=== PATIENT | male | born 1980 | race Caucasian/White ===

== ENCOUNTER 2019-04-21 13:43 | Emergency (ER) | payer OTHER ==
[~2019-04-21] VITALS: Ht 177.8 cm; Wt 104.3 kg
[2019-04-21 14:10] LABS: ABSOLUTE NEUTROPHILS 8.8 thou/uL (1.4-8.2); BASOPHILS 0.5 % (0.0-2.0); EOSINOPHILS 1.1 % (0.0-3.0); HEMATOCRIT 44.4 % (42.0-52.0); LYMPHOCYTES 30.2 % (24.0-44.0); MCH 29.8 pg (26.0-34.0); MCHC 33.7 g/dL (28.0-37.0); MCV 88.2 fL (80.0-100.0); MONOCYTES 7.4 % (1.0-8.0); PLATELET COUNT 365 thou/uL (150-400); POLYS 60.8 % (36.0-66.0); RBC 5.03 mil/uL (4.50-6.00); RDW 13.2 % (10.5-14.5); WBC 14.5 thou/uL (4.0-11.0)
[2019-04-21 14:32] LABS: ANION GAP 10 mmol/L (7-16); BUN 16 mg/dL (7-18); CALCIUM 9.4 mg/dL (8.5-10.1); CHLORIDE 101 mmol/L (98-107); CO2 25 mmol/L (21-32); CREATININE 0.9 mg/dL (0.7-1.3); GLUCOSE 112 mg/dL (74-106); POTASSIUM 3.9 mmol/L (3.5-5.1); SODIUM 136 mmol/L (136-145)
[2019-04-21 14:38] LABS: ALBUMIN 4.3 g/dL (3.4-5.0); SGOT 25 U/L (15-37); SGPT 51 U/L (30-65); TOTAL BILIRUBIN 0.5 mg/dL (<0.1-1.0); TOTAL PROTEIN 7.7 g/dL (6.4-8.2)
[2019-04-21 14:49] LABS: SALICYLATE 4.3 mg/dL (2.8-20.0)
[2019-04-21 15:01] LABS: APTT 23.3 Seconds (24.5-32.8); INR 1.1; PROTIME 11.5 Seconds (9.3-11.4)
[2019-04-21] MEDS ORDERED: WELLBUTRIN 100100 MG PO (15:49)
[2019-04-21] MEDS ORDERED: REMICADE 1100 MG/VIA IV (15:51)
[2019-04-21] MEDS ORDERED: NORCO 5-325 TA1 EAC1 PO (16:37)
[2019-04-21] MEDS ORDERED: NAPROSYN500 MG PO (16:37)
[2019-04-21 17:06] VITALS: BP 131/80
[2019-04-21 17:24] LABS: URINE BILIRUBIN NEGATIVE (Negative); URINE BLOOD NEGATIVE (Negative); URINE CLARITY CLEAR; URINE COLOR YELLOW; URINE GLUCOSE-RANDOM* NEGATIVE (Negative); URINE KETONES NEGATIVE (Negative); URINE LEUKOCYTES-REFLEX NEGATIVE (Negative); URINE NITRITE-REFLEX NEGATIVE (Negative); URINE PROTEIN (DIPSTICK) NEGATIVE (Negative); URINE SPECIFIC GRAVITY >= 1.030 (1.005-1.035); URINE UROBILINOGEN 0.2 E.U./dl (0.2-1.0)
[2019-04-21 17:45] LABS: AMP/METHAMP Negative (Negative); BARBITURATES Negative (Negative); BENZODIAZEPINES Negative (Negative); COCAINE Negative (Negative); METHADONE Negative (Negative); OPIATES POSITIVE (Negative); PCP Negative (Negative)
== END 2019-04-21 17:07 | disposition home or self-care (01) ==
LOC: ER 13:43
PROVIDERS: Emergency Medicine
DX: S32.018A Other fracture of first lumbar vertebra, initial encounter for closed fracture (principal); K50.90 Crohn's disease, unspecified, without complications; Z88.0 Allergy status to penicillin; Z87.891 Personal history of nicotine dependence; W11.XXXA Fall on and from ladder, initial encounter; Y92.89 Other specified places as the place of occurrence of the external cause; Y93.89 Activity, other specified; Y99.8 Other external cause status

== ENCOUNTER 2019-04-23 15:11 | Emergency (ER) | payer OTHER ==
[~2019-04-23] VITALS: Ht 177.8 cm; Wt 104.3 kg
[~2019-04-23 15:11] MED LIST: NAPROSYN500 MG PO; NORCO 5-325 TA1 EAC1 PO; REMICADE 1100 MG/VIA IV; WELLBUTRIN 100100 MG PO
[2019-04-23] MEDS ORDERED: NORCO 10-325 T1 EACH PO (16:15)
[2019-04-23] MEDS ORDERED: NAPROSYN500 MG PO (16:15)
[2019-04-23 16:36] VITALS: BP 136/86
== END 2019-04-23 16:37 | disposition home or self-care (01) ==
LOC: ER 15:11
DX: M54.5 Low back pain (principal); K50.90 Crohn's disease, unspecified, without complications; Z87.891 Personal history of nicotine dependence; Z88.0 Allergy status to penicillin